=== PATIENT | female | born 1945 | race Caucasian/White ===

== ENCOUNTER 2024-04-14 13:59 | Outpatient (CLI) | payer MEDICARE, SELFPAY ==
--- NOTE | 2024-04-14 14:02 | XR_ITS ---
WS: [id number] DEXA (DUAL ENERGY X-RAY ABSORPTIOMETRY) Bone mineral density was performed using a MEDSEEK machine. HISTORY: ASYMPTOMATIC MENOPAUSAL STATE COMPARISON: None Lumbar spine BMD (L1-L4): 1.474 g/cm2 T score: 2.5 Z score: 3.5 Total hip BMD: Left: 0.911 g/cm2. T score: -0.8 Z score: 0.7 Right: 0.895 g/cm2. T score: -0.9 Z score: 0.6 10 year probability of a major osteoporotic fracture is 15%. XR/XR DEXA axial skeleton* 46512 IMPRESSION: 1. OSTEOPENIA based upon the WHO classification for females
== END 2024-04-14 14:00 | disposition home or self-care (01) ==
LOC: RAD 14:00
PROVIDERS: PCP Nurse Practitioner Family; Visit Provider Nurse Practitioner Family
DX: Z78.0 Asymptomatic menopausal state (principal); M85.80 Other specified disorders of bone density and structure, unspecified site
CPT/HCPCS: 77080

== ENCOUNTER 2024-11-27 11:51 | Outpatient (CLI) | payer MEDICARE, SELFPAY ==
--- NOTE | 2024-11-27 12:06 | XR_ITS ---
WS: [id number] Exam: XR KUB [id number] Date/Time of Exam: 11/27/2024 12:15 PM Reason For Exam: HEMATURIA/UNSPECIFIED ABDOMINAL PAIN No bowel obstruction or free air. There are grouped calcifications in the medial RIGHT abdomen probably representing gallstones. No sign of organ enlargement. Degenerative changes of the thoracic and lumbar spine. Old high-grade compression fracture of T10. XR/XR KUB [id number] IMPRESSION: 1. No acute abdominal process. 2. Grouped calcifications in the medial RIGHT abdomen most likely representing gallstones. Follow-up with ultrasound could confirm.
== END 2024-11-27 11:52 | disposition home or self-care (01) ==
PROVIDERS: PCP Nurse Practitioner Family; Visit Provider Nurse Practitioner Family
DX: R31.9 Hematuria, unspecified (principal); R10.9 Unspecified abdominal pain; R93.5 Abnormal findings on diagnostic imaging of other abdominal regions, including retroperitoneum; M47.896 Other spondylosis, lumbar region; M47.894 Other spondylosis, thoracic region; M48.54XD Collapsed vertebra, not elsewhere classified, thoracic region, subsequent encounter for fracture with routine healing
CPT/HCPCS: 74018